=== PATIENT | male | born 1965 | race Caucasian/White ===

== ENCOUNTER 2016-03-29 17:53 | Emergency (ER) | payer BC ==
[~2016-03-29] VITALS: Ht 185.4 cm; Wt 86.2 kg
[2016-03-29 18:17] VITALS: BP 125/69
[2016-03-29 20:10] VITALS: BP 125/69
--- NOTE | 2016-03-29 21:02 | Emergency Room Report ---
History of Present Illness General Chief Complaint: Alcohol Intoxication Source: Patient Present Illness HPI The patient is a 50-year-old male brought in by ambulance for acute alcohol intoxication. The patient does admit to drinking 2 martinis and 2 glasses of wine. The patient denies any pain or any other symptoms at this time. The patient states that he just wanted to "sleep it off" at home. The patient does admit to a history of alcohol abuse and states that he has been a member of [employer]. Patient denies any drug use. Patient denies chest pain, shortness of breath, nausea, vomiting, fever, chills , headache Allergies: Coded Allergies: No Known Allergies (Unverified , 03/29/16) Patient History Past Medical History: see triage record Pertinent Family History: none Reviewed Nursing Documentation: PMH: Agreed, PSxH: Agreed Review of Systems All Other Systems: negative except mentioned in HPI Physical Exam Vital Signs Date Time Temp Pulse Resp B/P Pulse Ox O2 Delivery O2 Flow Rate FiO2 03/29/16 17:42 98.8 126 20 126/79 97 Room Air Sp02 EP Interpretation: reviewed, normal General Appearance: no apparent distress, alert, GCS 15, non-toxic Head: normocephalic, atraumatic Eyes: bilateral eye PERRL, bilateral eye normal inspection ENT: hearing grossly normal, normal pharynx, no angioedema, normal voice Neck: full range of motion, supple/symm/no masses Respiratory: chest non-tender, lungs clear, normal breath sounds, no respiratory distress, no accessory muscle use, no wheezing, speaking full sentences Cardiovascular #1: regular rate, rhythm, no edema Gastrointestinal: normal bowel sounds, non tender, soft, non-distended, no guarding, no rebound Rectal: deferred Genitourinary: normal inspection, no CVA tenderness Musculoskeletal: back normal, digits/nails normal, gait/station normal, normal range of motion, non-tender Neurologic: alert, oriented x3, responsive, motor strength/tone normal, sensory intact, speech normal Psychiatric: judgement/insight normal, memory normal, mood/affect normal, no suicidal/homicidal ideation Skin: normal color, no rash, warm/dry, well hydrated Medical Decision Making PA Attestation Dr. Watson is my supervising physician. Patient management was discussed with my supervising physician Diagnostic Impression: Primary Impression: Acute alcoholic intoxication ER Course The patient is a 50-year-old male brought in by ambulance for acute alcohol intoxication DDx considered but not limited to: acute alcohol intoxication, hepatic encephalopathy, drug overdose, hypoglycemia, psychosis Physical exam: Vitals within normal limits. No apparent distress. Head is normocephalic atraumatic. Lungs clear to auscultation bilaterally. Abdomen is soft and nontender. Skin is warm and dry. The patient is given time to rest in the emergency department. The patient will be discharged home when he is able to ambulate well and when he is alert and oriented. The patient is given information regarding alcohol abuse Last Vital Signs Date Time Temp Pulse Resp B/P Pulse Ox O2 Delivery O2 Flow Rate FiO2 03/29/16 20:10 98.8 120 21 125/69 98 Room Air Status: improved Disposition: HOME, SELF-CARE Condition: Improved Referrals: NOT CHOSEN IPA/MD,REFERRING (PCP) Patient Instructions: Alcohol Use Disorder, Alcohol Intoxication Additional Instructions: My findings were discussed with the patient. Patient was counseled to seek help for alcohol abuse. Patient is stable for discharge, is alert and oriented, and can ambulate without difficulty. Patient is asked to return to ED if he experiences chest pain, abdominal pain, dizziness, falls down, or for any reason. BERNABE PLAZA Mar 29, 2016 21:02
== END 2016-03-29 20:10 | disposition home or self-care (01) ==
LOC: EDBD 17:53 → EMR 18:19
DX: F10.129 Alcohol abuse with intoxication, unspecified (principal)
CPT/HCPCS: 99284